=== PATIENT | male | born 1995 | race Hispanic/Latino ===

== ENCOUNTER 2021-02-05 17:58 | Emergency (ER) | payer SELFPAY ==
[~2021-02-05] VITALS: Ht 167.6 cm; Wt 77.1 kg
[2021-02-05] MEDS ORDERED: TETANUS/DIPHTHERIA TOX ADULT 0.5 ML SYR IM ONE (18:00)
[2021-02-05] MEDS ORDERED: HYDROCODONE/APAP 10MG-325MG TAB PO NR (18:00)
[2021-02-05] MEDS ORDERED: LIDOCAINE HCL 2% LOCAL 20 ML VIAL INJ ONE (18:15)
[2021-02-05 19:08] VITALS: BP 123/58
== END 2021-02-05 19:10 | disposition home or self-care (01) ==
LOC: ER 18:00
DX: S91.311A Laceration without foreign body, right foot, initial encounter (principal); W27.0XXA Contact with workbench tool, initial encounter; Y93.H3 Activity, building and construction; Y99.0 Civilian activity done for income or pay
CPT/HCPCS: 12002; 73630; 90471; 90714; 99283; J2001